=== PATIENT | male | born 1995 | race Asian ===

== ENCOUNTER 2020-12-05 14:24 | Emergency (ER) | payer BC ==
[~2020-12-05] VITALS: Ht 170.2 cm; Wt 79.0 kg
[2020-12-05 14:26] VITALS: BP 144/80
[2020-12-05] MEDS ORDERED: ACETAMINOPHEN 325MG TABLET PO ONE (23:00)
[2020-12-05] MEDS ORDERED: ALBU6.7H9 INH ×2 (23:04)
[2020-12-05] MEDS ORDERED: CEPH500C2 MT ×2 (23:04)
[2020-12-05] MEDS ORDERED: KETO15CR2 TP (23:12)
[2020-12-05] MEDS ORDERED: NAPR-1176 MT (23:12)
[2020-12-05] MEDS ORDERED: SULF1TAB48 MT (23:12)
[2020-12-05] MEDS ORDERED: ACET-2708 MT (23:12)
== END 2020-12-05 23:33 | disposition home or self-care (01) ==
LOC: ER 15:45
DX: L72.3 Sebaceous cyst (principal); L02.415 Cutaneous abscess of right lower limb; S80.821A Blister (nonthermal), right lower leg, initial encounter; X58.XXXA Exposure to other specified factors, initial encounter; Y93.89 Activity, other specified; Y92.89 Other specified places as the place of occurrence of the external cause; R03.0 Elevated blood-pressure reading, without diagnosis of hypertension
CPT/HCPCS: 99283